=== PATIENT | female | born 1950 ===

== ENCOUNTER 2021-09-23 07:05 | Day surgery (SDC) | payer OTHER ==
[~2021-09-23 07:05] MED LIST: ENALAPRIL MALEA10 MG PO
[2021-09-23] MEDS ORDERED: PERCOCET 5-3251 EACH PO (10:17)
[2021-09-23] MEDS ORDERED: RECTICARE30 GM TOP (10:17)
== END 2021-09-23 15:45 | disposition home or self-care (01) ==
LOC: CIR.AMB 07:05 → EDSTATUS 11:45 → SURH 11:45 → CIR.AMB 13:00
PROVIDERS: ATTEND Surgery
DX: C21.8 Malignant neoplasm of overlapping sites of rectum, anus and anal canal (principal)